=== PATIENT | male | born 1955 | race African-American/Black ===

== ENCOUNTER 2021-01-07 13:46 | Outpatient (RCR) | payer OTHER, SELFPAY | END 2021-10-18 09:18 | disposition home or self-care (01) | LOC: HO.WCC 13:46 | PROVIDERS: Absent Provider Family Medicine; PCP Nurse Practitioner Family; Visit Provider Physician Assistant | DX: E11.622 Type 2 diabetes mellitus with other skin ulcer (principal); I87.311 Chronic venous hypertension (idiopathic) with ulcer of right lower extremity; L97.811 Non-pressure chronic ulcer of other part of right lower leg limited to breakdown of skin; E11.65 Type 2 diabetes mellitus with hyperglycemia | CPT/HCPCS: 11042; 11043; 11045; 11046; 15271; 15272; 15275; 15276; 29580; 97597; 97606; 99212; 99213; Q4101 ==

== ENCOUNTER 2021-04-20 09:01 | Outpatient (REF) | payer OTHER, SELFPAY ==
--- NOTE | ~2021-04-20 | US_ITS ---
EXAMINATION: ULTRASOUND ARTERIAL DUPLEX LOWER EXTREMITY WITH ANTOINE CLINICAL INFORMATION: Nonhealing wounds. COMPARISON: None TECHNIQUE: Multiple 2D grayscale and duplex Doppler ultrasound images of the arterial system of the right lower extremity were obtained. There is limitation at the level of the calf arteries secondary to overlying bandages and wounds. FINDINGS: Duplex Doppler interrogation of the right lower extremity showed normal tri and biphasic arterial waveforms. Scattered mild to moderate atherosclerosis is seen most pronounced in the right posterior tibial artery. The anterior, peroneal and dorsalis pedis arteries were not interrogated. Arterial peak systolic velocities are as follows: Right: Common femoral: 125 cm/sec Profunda femoral: 91 cm/sec Superficial femoral proximal: 108 cm/sec Superficial femoral mid: 159 cm/sec. Superficial femoral distal: 100 cm/sec Popliteal: 113 cm/sec. Posterior tibial: 89 cm/sec The right ankle-brachial index on the right was calculated as 0.95 at the posterior tibial artery and 0.91 at the dorsalis pedis artery. The left ankle-brachial index is calculated as 0.96 at the posterior tibial artery and 0.93 at the dorsalis pedis artery. US/US arterial duplex LE RT IMPRESSION: 1. Mild to moderate atherosclerosis without hemodynamically significant arterial stenosis in the visualized arteries of the right lower extremity. 2. Ankle-brachial indices are in the range of mild ischemia bilaterally.
--- NOTE | ~2021-04-20 | US_ITS ---
EXAMINATION: RIGHT LOWER EXTREMITY VENOUS ULTRASOUND (Reflux Exam) CLINICAL INDICATION: Chronic venous hypertension. COMPARISON: None. TECHNIQUE: Color flow triplex imaging and compression Doppler was performed to evaluate both the deep and the superficial systems of the right lower extremity. To evaluate the superficial system, the examination was performed in the upright position. Color-flow Doppler ultrasound and compression ultrasound were utilized. In addition, maneuvers were utilized to demonstrate reflux. FINDINGS: 1. DEEP VENOUS DOPPLER ULTRASOUND: Common Femoral Vein: Compressible, normal respiratory variation and augmented flow. Femoral vein: Compressible, normal color flow and augmentation. Popliteal Vein: Compressible, normal augmentation. Deep Reflux: There is no evidence of reflux in the deep system in either the common femoral vein or the popliteal vein. There is no evidence of a Cordero's cyst. 2. SUPERFICIAL VENOUS DOPPLER ULTRASOUND: GREAT SAPHENOUS VEIN: Saphenofemoral junction: 0.6 cm; No evidence of reflux. Proximal thigh: 0.3 cm; No evidence of reflux. Mid thigh: 0.2 cm; No evidence of reflux. Above knee: 0.3 cm; greater than 1.4 seconds of reflux. At knee: 0.4 cm; No evidence of reflux. Below knee: 0.4 cm; No evidence of reflux. Mid calf: 0.3 cm; No evidence of reflux. Ankle: 0.3 cm; No evidence of reflux. DUPLICATED GREAT SAPHENOUS VEIN: Lateral, 0.2 cm, no reflux. SMALL SAPHENOUS VEIN: Saphenopopliteal junction: 0.2 cm; No evidence of reflux. Mid calf: 0.2 cm; No evidence of reflux. Distal calf: 0.3 cm; No evidence of reflux. VEIN OF GIACOMINI: None Imaged. PERFORATORS: Proximal thigh, 0.2 cm, no reflux. Distal thigh, 0.3 cm, no reflux. Proximal calf, 0.3 cm, no reflux. Proximal calf, 0.1 cm, no reflux. VARICOSITIES: No varicosities identified greater than 3 mm. Additional: Note is made of an enlarged right groin lymph node measuring up to 4.4 x 1.0 x 4.4 cm. US/US venous duplex LE RT IMPRESSION: 1. Right great saphenous venous insufficiency above the knee. 2. No evidence of small saphenous venous insufficiency. 3. No varicosities greater than 3 mm identified within the right lower extremity. 4. Enlarged right inguinal lymph node measuring up to 4.4 x 1.0 cm.
--- NOTE | ~2021-04-20 | US_ITS ---
EXAMINATION: ULTRASOUND ARTERIAL DUPLEX LOWER EXTREMITY WITH ANTOINE CLINICAL INFORMATION: Nonhealing wounds. COMPARISON: None TECHNIQUE: Multiple 2D grayscale and duplex Doppler ultrasound images of the arterial system of the right lower extremity were obtained. There is limitation at the level of the calf arteries secondary to overlying bandages and wounds. FINDINGS: Duplex Doppler interrogation of the right lower extremity showed normal tri and biphasic arterial waveforms. Scattered mild to moderate atherosclerosis is seen most pronounced in the right posterior tibial artery. The anterior, peroneal and dorsalis pedis arteries were not interrogated. Arterial peak systolic velocities are as follows: Right: Common femoral: 125 cm/sec Profunda femoral: 91 cm/sec Superficial femoral proximal: 108 cm/sec Superficial femoral mid: 159 cm/sec. Superficial femoral distal: 100 cm/sec Popliteal: 113 cm/sec. Posterior tibial: 89 cm/sec The right ankle-brachial index on the right was calculated as 0.95 at the posterior tibial artery and 0.91 at the dorsalis pedis artery. The left ankle-brachial index is calculated as 0.96 at the posterior tibial artery and 0.93 at the dorsalis pedis artery. US/US ANTOINE complete IMPRESSION: 1. Mild to moderate atherosclerosis without hemodynamically significant arterial stenosis in the visualized arteries of the right lower extremity. 2. Ankle-brachial indices are in the range of mild ischemia bilaterally.
== END 2021-04-20 09:02 | disposition home or self-care (01) ==
LOC: HO.US 09:01
PROVIDERS: PCP Nurse Practitioner Family; Visit Provider Physician Assistant
DX: I87.311 Chronic venous hypertension (idiopathic) with ulcer of right lower extremity (principal); L97.815 Non-pressure chronic ulcer of other part of right lower leg with muscle involvement without evidence of necrosis; L97.812 Non-pressure chronic ulcer of other part of right lower leg with fat layer exposed
CPT/HCPCS: 93923; 93926; 93971

== ENCOUNTER 2025-04-16 21:19 | Emergency (ER) | payer OTHER, SELFPAY ==
[2025-04-16 21:30] VITALS: BP 190/80; PULSE 110; O2SAT 98
[2025-04-16 21:33] VITALS: BP 168/75; PULSE 83; RESP 18; TEMP 36.6; O2SAT 97; BMI 25.1
[2025-04-16 21:37] LABS: Glucose, Whole Blood 67 mg/dL (60-115)
--- NOTE | 2025-04-16 21:58 | ED.GENADULT ---
HPI - General Adult General Chief complaint: General Medical Stated complaint: PER EMS AMS, POC 64 DIABETIC Time Seen by Provider: 04/16/25 21:56 Source: patient Mode of arrival: ambulatory Limitations: no limitations History of Present Illness ED Provider: HPI narrative: Patient is diabetic took his 8 units of Humalog at noon time and did not eat much fell lightheaded slightly confused while driving pulled over his car EMS came and checked her blood sugar was 64 oral mucous was administered repeat blood sugar was 59 patient has had food in blood pressure blood sugar now was 109 Related Data Allergies Allergy/AdvReac Type Severity Reaction Status Date / Time No Known Allergies Allergy Verified 04/16/25 21:35 Review of Systems Review of Systems: Yes all other systems are reviewed and are negative [facility] Social History Social History Advance Directives: No Advance Directives Information Provided: No Physical Exam ED Vital Signs: Vital Signs - 24 hr 04/16/25 21:33 Temperature 97.9 F Pulse Rate 83 Respiratory Rate 18 Blood Pressure 168/75 H Pulse Oximetry 97 Oxygen Delivery Method Room Air BMI result Body Mass Index 25.1 Appearance: Alert. Oriented X3. No acute distress. Eyes: PERRLA, No Nystagmus ENT: Pharynx normal. Oral Mucosa moist Neck: Normal inspection. Neck supple. CVS: Normal heart rate and rhythm. Pulses normal. Respiratory: No respiratory distress. Equal air entry bilateral, no wheezing/rales/rhonchi Abdomen: Soft and nontender. Bowel sounds are present, no mass palpable, no CVA tenderness Skin: Skin warm and dry. Normal skin color. Normal skin turgor. Extremities: No lower extremity edema. No calf tenderness Neuro: Oriented X 3. No motor deficit. No sensory deficit.No cerebellar signs , cranial nerves II-XII intact Medical Decision Making Medical Decision Making MDM Narrative: Patient's transient hyperglycemia secondary to use of insulin and not eating well improved after IV dextrose and patient has had food in the ER repeat blood sugar was 107 patient ambulatory in steady gait educated again DM, blood sugar/meals on regular basis Lab Data [facility] Lab Attestation statement: I reviewed the patient's lab results. Labs: Lab Results 04/16/25 04/16/25 Range/Units 21:33 22:20 POC Glucose 67 107 (60-115) mg/dL Discharge Plan Discharge Clinical Impression: Diabetes mellitus with hypoglycemia Patient Disposition: Home, Self-Care Instructions: Hypoglycemia in a Person with Diabetes (ED) Additional Instructions: When taking insulin you should have your meal ready and eat well Follow with your PCP if any concerns Print Language: Citizen Of [place]
[2025-04-16 22:24] LABS: Glucose, Whole Blood 107 mg/dL (60-115)
[2025-04-16 22:33] VITALS: BP 168/75; PULSE 83; RESP 18; TEMP 36.6; O2SAT 97
== END 2025-04-16 22:38 | disposition home or self-care (01) ==
PROVIDERS: Emergency Provider Internal Medicine
DX: E11.649 Type 2 diabetes mellitus with hypoglycemia without coma (principal); Z79.899 Other long term (current) drug therapy
CPT/HCPCS: 82947; 99282; 99284